=== PATIENT | female | born 1940 | race Caucasian/White ===

== ENCOUNTER → 2016-09-10 | Outpatient (CLI) | payer OTHER ==
[~2016-09-10] MED LIST: ASPIR 8181 M1 PO; ATIVAN0.5 MG PO; ATORVASTATIN CA80 MG PO; COREG12.5 MG PO; FLONASE 0.05%50 MCG NASAL; IBUPROFEN 600600 M1 PO; LOSARTAN POTAS100 MG PO; METFORMIN HCL500 MG PO; MOBIC7.5 MG PO; NITROGLYCERIN0.4 MG SUBLING; NORCO 5-325 TA1 EACH PO; PROAIR HFA8.5 GM; SERTRALINE HCL50 MG PO; TYLENOL325 MG PO; ZOLOFT25 MG PO
== END ==
LOC: CAT 02:14
DX: N28.89 Other specified disorders of kidney and ureter (principal); K76.89 Other specified diseases of liver; R10.32 Left lower quadrant pain

== ENCOUNTER → 2016-09-18 | Outpatient (CLI) | payer OTHER | LOC: CV → RAD 09:36 | DX: K44.9 Diaphragmatic hernia without obstruction or gangrene (principal); R10.9 Unspecified abdominal pain; E11.9 Type 2 diabetes mellitus without complications ==

== ENCOUNTER 2016-11-27 07:57 | Emergency (ER) | payer OTHER ==
[~2016-11-27] VITALS: Ht 160 cm; Wt 56.7 kg
--- NOTE | ~2016-11-27 | EKG ---
[place] [address] [facility] [email or web address] [address] ELECTROCARDIOGRAM REPORT Name: TREVON PANDYA [facility] [id number] Admission: 11/27/16 Attend Phys: Discharge: 11/27/16 Date of : 40 Report #: [id number] THIS REPORT FOR: //name// [facility] ED Test Date: 2016-11-27 Test Time: 09:10:27 Pat Name: TREVON PANDYA Department: Room: Gender: F Plant Maintenance Mechanic: Trevor CARDOSO : 1940 Requested By: Stiven Rae Order Number: [id number] MD: Cheng Martin Measurements Intervals [place] Rate: 49 P: 37 DC: 153 QRS: -12 QRSD: 127 T: -47 QT: 463 QTc: 418 Interpretive Statements Sinus bradycardia Inferior myocardial infarction, age indeterminate Nonspecific intraventricular conduction delay Compared to ECG 08/03/2016 04:38:11 no significant change was found Electronically Signed On 11-29-2016 15:35:19 CDT by Cheng Martin [email or web address] <ELECTRONICALLY SIGNED> By: Cheng Martin MD, [facility] 11/29/16 1535 9 9 Cheng Martin MD, [facility] /EPI
[2016-11-27] MEDS ORDERED: IBUPROFEN 600600 M1 PO (09:23)
[2016-11-27 09:37] VITALS: BP 147/57
== END 2016-11-27 09:39 | disposition home or self-care (01) ==
LOC: ER 07:57
DX: S63.502A Unspecified sprain of left wrist, initial encounter (principal); I25.2 Old myocardial infarction; E11.9 Type 2 diabetes mellitus without complications; F10.99 Alcohol use, unspecified with unspecified alcohol-induced disorder; Z90.710 Acquired absence of both cervix and uterus; Z90.89 Acquired absence of other organs; Z88.1 Allergy status to other antibiotic agents; Z88.0 Allergy status to penicillin; Z88.2 Allergy status to sulfonamides; Z87.891 Personal history of nicotine dependence; X50.0XXA Overexertion from strenuous movement or load, initial encounter; Y93.89 Activity, other specified; Y92.89 Other specified places as the place of occurrence of the external cause; Y99.8 Other external cause status

== ENCOUNTER → 2016-12-10 | Outpatient (CLI) | payer OTHER ==
[~2016-12-10] MED LIST changes: +ARICEPT PO; +ATORVASTATIN CA40 MG PO; +BUSPIRONE HCL5 MG PO; +COREG3.125 MG PO; +COZAAR PO; +MELATONIN5 M1 PO; +NORVASC5 MG PO; +ZOLOFT PO
== END ==
LOC: NUC 09:49
DX: M81.0 Age-related osteoporosis without current pathological fracture (principal); Z78.0 Asymptomatic menopausal state

== ENCOUNTER → 2016-12-16 | Outpatient (CLI) | payer OTHER ==
[~2016-12-16] VITALS: Ht 160 cm; Wt 56.7 kg
--- NOTE | ~2016-12-16 | EKG ---
[place] [address] [facility] [place] [address] ELECTROCARDIOGRAM REPORT Name: TREVON PANDYA Room #: REG CLReuben Maria#: [id number] Admission: 12/16/16 Attend Phys: Carlitos Davis Discharge: Date of : 40 Report #: [id number] THIS REPORT FOR: //name// [facility] Test Date: 2016-12-16 Test Time: 08:46:50 Pat Name: TREVON PANDYA Department: Room: Gender: F Culinary Assistant: RANJAN : 1940 Requested By: Harrison Eid Order Number: [id number] MD: Cheng Martin Measurements Intervals [place] Rate: 54 P: 35 DC: 148 QRS: -20 QRSD: 126 T: -58 QT: 473 QTc: 449 Interpretive Statements Sinus bradycardia IVCD, consider atypical LBBB Compared to ECG 11/27/2016 09:10:27 No significant change was found Electronically Signed On 12-17-2016 8:17:30 CDT by Cheng Martin [email or web address] <ELECTRONICALLY SIGNED> By: Cheng Martin MD, [facility] 12/17/1617 5 5 Cheng Martin MD, [facility] /EPI
== END | disposition home or self-care (01) ==
LOC: GI 08:15
DX: R19.4 Change in bowel habit (principal); I10 Essential (primary) hypertension; I25.2 Old myocardial infarction; E11.9 Type 2 diabetes mellitus without complications; F32.89 Other specified depressive episodes; Z88.0 Allergy status to penicillin; Z88.2 Allergy status to sulfonamides; Z88.8 Allergy status to other drugs, medicaments and biological substances; Z87.891 Personal history of nicotine dependence; Z90.710 Acquired absence of both cervix and uterus; Z98.890 Other specified postprocedural states; Z79.899 Other long term (current) drug therapy
CPT/HCPCS: 62110; 62900

== ENCOUNTER 2017-02-19 12:35 | Emergency (ER) | payer OTHER ==
[~2017-02-19] VITALS: Ht 157.5 cm; Wt 59.0 kg
[2017-02-23] MEDS ORDERED: IMDUR 30 MG TAB30 M1 PO (07:52)
[2017-02-23] MEDS ORDERED: SERTRALINE HCL50 MG PO (07:53)
[2017-02-23] MEDS ORDERED: ASPIR 8181 MG PO (07:54)
== END 2017-02-19 15:30 | disposition home or self-care (01) ==
LOC: ER 12:35
DX: S30.0XXA Contusion of lower back and pelvis, initial encounter (principal); I25.2 Old myocardial infarction; I10 Essential (primary) hypertension; F32.9 Major depressive disorder, single episode, unspecified; E78.5 Hyperlipidemia, unspecified; E11.9 Type 2 diabetes mellitus without complications; Z90.710 Acquired absence of both cervix and uterus; F10.99 Alcohol use, unspecified with unspecified alcohol-induced disorder; Z87.891 Personal history of nicotine dependence; Z88.0 Allergy status to penicillin; Z88.1 Allergy status to other antibiotic agents; Z88.2 Allergy status to sulfonamides; W01.0XXA Fall on same level from slipping, tripping and stumbling without subsequent striking against object, initial encounter; Y93.89 Activity, other specified; Y92.89 Other specified places as the place of occurrence of the external cause; Y99.8 Other external cause status

== ENCOUNTER → 2017-02-23 | Outpatient (CLI) | payer OTHER ==
[~2017-02-23] VITALS: Ht 167.6 cm; Wt 56.7 kg
[~2017-02-23] MED LIST changes: +ASPIR 8181 MG PO; +IMDUR 30 MG TAB30 M1 PO
--- NOTE | ~2017-02-23 | EKG ---
[address] [email or web address] [address] ELECTROCARDIOGRAM REPORT Name: RUY PANDYAITH Room #: REG CLI [facility] [id number] Admission: 02/23/17 Attend Phys: Ziggy Barney MD Discharge: Date of : 40 Report #: [id number] THIS REPORT FOR: //name// [facility] Test Date: 2017-02-23 Test Time: 07:25:50 Pat Name: TREVON PANDYA Department: Room: Gender: F Dry Cleaner Hand: Ruth BRINK : 1940 Requested By: Ziggy Barney Order Number: [id number] MD: Cheng Martin Measurements Intervals [place] Rate: 46 P: 41 MI: 157 QRS: -1 QRSD: 128 T: -35 QT: 495 QTc: 433 Interpretive Statements Sinus bradycardia Inferior infarct, age indeterminate Compared to ECG 12/16/2016 08:46:50 Myocardial infarct finding now present no significant change was found Electronically Signed On 02-23-2017 8:32:55 CDT by Cheng Martin [email or web address] <ELECTRONICALLY SIGNED> By: Cheng Martin MD, [facility] 02/23/1732 4 4 Cheng Martin MD, [facility] /EPI
--- NOTE | ~2017-02-23 | CATHLAB ---
[facility] [address] [place] [address] INVASIVE PROCEDURE REPORT Name: TREVON PANDYA Room #: REG SHANTE MenjivarIsauraSakinaIsaura#: [id number] Admission: 02/23/17 Attend Phys: Ziggy Barney MD Discharge: Date of : 40 Date of Service: 02/23/17 1141 Report #: [id number] THIS REPORT FOR: //name// APPROVED REPORT Patient Details Patient Status: Out-Patient Room #: The patient is a 76 year-old female Event Personnel Ziggy Barney Supervisor [employer], Jennifer Sharma Monitor, Tab Floyd RN, Yi Cruz RN RN, Lizandro Kelsey, Christina Sanford Monitor Procedures Performed Art Access - R femoral artery* Left Heart Cath w/or w/o Coronaries [id number] [facility] Hemostasis w/ Mynx Indication Chest pain Risk Factors Hypercholesterolemia, Coronary Artery DiseaseHypertension Previous Procedures/Diagnoses Previous NC Procedure Narrative The patient was brought electively to the Cardiac Catheterization Laboratory and was prepped and draped in a sterile manner. The Right Groin^ was infiltrated with 1% Lidocaine subcutaneous anesthesia. A PINNACLE 5FR Sheath #[id number] sheath was inserted into the RFA^. Coronary angiography was performed using coronary diagnostic catheters. The right coronary system was accessed and visualized with a JR 4 catheter. The left coronary system was accessed and visualized with a JL 4 catheter. The left ventricle was accessed and visualized with a Pigtail catheter. Left ventricular/Aortic Valve gradient assessed via catheter pullback. Left ventriculogram was performed in 30 degree projection. Pre-demployment femoral angiogram was performed RFA. Closure device was deployed with a 5 Fr Mynx. The patient tolerated the procedure well and there were no complications associated with the procedure. There was no hematoma. Intraoperative Conscious Sedation Sedation start time: 09:45 Case end Time: [facility] [address] [place] [address] INVASIVE PROCEDURE REPORT Name: TREVON PANDYA Room #: REG Candace#: [id number] Admission: 02/23/17 Attend Phys: Ziggy Barney MD Discharge: Date of : 40 Date of Service: 02/23/17 1141 Report #: [id number] 10:11 Fentanyl 25.0 mcg Versed 1.0 mg Fluoro Time: 2.35 minutes Dose: DAP 2818.00 cGycm2 348 mGy Contrast Type and Amount: Omnipaque 150 ml Coronary Angiography The patient's coronary anatomy is right dominant. Diagnostic Cath Left Main Large-caliber vessel with a mild to moderate stenosis at the distal segment, 30-40%. There is calcification within the distal region and proximal LAD and proximal left circumflex arteries. LAD Moderate size caliber vessel, traveling down the anterior wall and wrapping around the apex. Mild disease is noted at the ostium, 20%. Diagonal 1 No flow-limiting lesions. Circumflex Moderate to large size caliber vessel, with a moderate ostial stenosis, approximately 50%. Supplies one moderate size OM vessel. OM1 Patent with no flow-limiting lesions. Right Coronary Severe stenosis in the proximal segment, with an aneurysmal component(remote history of inferior wall NC). following the R PDA Filled via antegrade flow from the [place] RCA and from collateral flow from the left circumflex artery. RPLV Filled via collateral blood flow from the left circumflex artery, the collateral vessel is actually a moderate size caliber. Left Ventriculography The left ventricle is mildly dilated in size with decreased contractility. The left ventricular ejection fraction is estimated to be 40-45%. Left ventricular wall motion abnormalities are present. Mild hypokinesis of the inferior wall. Hemodynamics The aortic pressure is 141/61 mmHg with a mean of 90 mmHg. The left ventricular pressure is 125/14 mmHg with a mean of mmHg. The left ventricular end diastolic pressure is 30 mmHg. Conclusion 1. Mild to moderate stenosis in the distal left main and ostial left circumflex arteries. Recommend medical therapy. [facility] [address] [place] [address] INVASIVE PROCEDURE REPORT Name: TREVON PANDYA Room #: REG SHANTE Maria#: [id number] Admission: 02/23/17 Attend Phys: Ziggy Barney MD Discharge: Date of : 40 Date of Service: 02/23/17 1141 Report #: [id number] 2. Severe stenosis in the proximal RCA, remote history of inferior wall NC. The distal branches are filled via collateral circulation. Continue with medical therapy. 3. Mild to moderate segmental LV dysfunction. Recommendations Medical Therapy <ELECTRONICALLY SIGNED> By: Ziggy Barney MD 02/23/17 1141 1141 1141 Ziggy Barney MD /INF
[2017-02-23 07:34] LABS: HEMATOCRIT 38.9 % (37.0-47.0); HEMOGLOBIN 13.1 gm/dL (12.0-15.0); MCH 29.6 pg (26.0-34.0); MCHC 33.8 g/dL (28.0-37.0); MCV 87.5 fL (80.0-100.0); RBC 4.45 mil/uL (4.20-5.00); RDW 13.7 % (10.5-14.5); WBC 8.4 thou/uL (4.0-11.0)
[2017-02-23 07:45] VITALS: BP 152/59
[2017-02-23 07:45] LABS: CALCIUM 9.6 mg/dL (8.5-10.1); CREATININE 0.7 mg/dL (0.6-1.0)
== END | disposition home or self-care (01) ==
LOC: CATH 06:28
PROVIDERS: Internal Medicine Cardiovascular Disease
DX: I25.10 Atherosclerotic heart disease of native coronary artery without angina pectoris (principal); I11.0 Hypertensive heart disease with heart failure; I50.1 Left ventricular failure, unspecified; I25.2 Old myocardial infarction; E78.00 Pure hypercholesterolemia, unspecified; E11.9 Type 2 diabetes mellitus without complications; F32.89 Other specified depressive episodes; F41.8 Other specified anxiety disorders; Z90.710 Acquired absence of both cervix and uterus; Z98.890 Other specified postprocedural states; Z87.891 Personal history of nicotine dependence; Z82.49 Family history of ischemic heart disease and other diseases of the circulatory system; Z88.0 Allergy status to penicillin; Z88.2 Allergy status to sulfonamides; Z88.1 Allergy status to other antibiotic agents; Z79.899 Other long term (current) drug therapy; Z79.82 Long term (current) use of aspirin

== ENCOUNTER → 2017-06-18 | Outpatient (CLI) | payer OTHER ==
[~2017-06-18] MED LIST changes: +ARICEPT 5 MG TAB5 MG PO; +COLACE 100 MG100 MG PO; +COLACE100 MG PO; +COZAAR 50 MG TA50 M1 PO; +COZAAR 50 MG TA50 M2 PO; +RANEXA500 MG PO; +ZOLOFT100 MG PO
== END ==
LOC: RAD 11:24
DX: J40 Bronchitis, not specified as acute or chronic (principal); I51.7 Cardiomegaly

== ENCOUNTER 2017-08-13 07:36 | Inpatient (IN) | payer OTHER ==
[2017-08-13] VITALS (7 sets, daily range): BP systolic 107–137; BP diastolic 50–64
[~2017-08-13] VITALS: Ht 157.5 cm; Wt 63.0 kg
--- NOTE | ~2017-08-13 | H ---
[facility] [place] [address] HISTORY AND PHYSICAL Name: TREVON PANDYA Room #: 438-P [facility] IN M.R.#: [id number] Admission: 08/13/17 Attend Phys: Otto Esparza Discharge: 08/15/17 Date of : 40 Report #: [id number] THIS REPORT FOR: //name// CC: Alex Kenney DATE OF SERVICE: 08/13/2017 CHIEF COMPLAINT: Chest pain, weakness and dizziness. HISTORY OF PRESENT ILLNESS: The patient is a 76-year-old female, came to the Emergency Room with a couple of days of varied symptoms, mainly centered on a feeling of weakness, lightheadedness and some left-sided rib or flank discomfort. She has had for a couple of days. She just has not felt right and went to bed last night, and she said she was "out of it." She woke up and was not sort of aware to the surroundings, and it took a couple of minutes to kind of get her bearing. Her daughter called as normal this morning and reported that she was feeling very weak that she could not get out of bed. In recent days, she has felt lightheaded, and her daughters noted that she has been stumbling at times, but has not had any falls. The patient is describing some discomfort vaguely over the last several weeks involving the left ribs or left flank area; however, this is not associated with activity, and before yesterday, she was attending exercise classes including walking on a treadmill at the local [facility] without precipitating any pain. She said she actually felt better when she went to exercise. She has had no shortness of breath, productive cough, fever or chills. She does have a longstanding history of heart disease and had apparently cardiac arrest some 28 years ago and has had coronary artery disease, has been treated medically. PAST MEDICAL HISTORY: Coronary artery disease, hypertension. There is a report of diabetes type 2, depression, dyslipidemia. PAST SURGICAL HISTORY: Cholecystectomy and hysterectomy. FAMILY HISTORY: Noncontributory. SOCIAL HISTORY: No chronic alcohol or tobacco use. ALLERGIES: LEVAQUIN, PENICILLIN, SULFA. MEDICATIONS: Lipitor 40 mg, BuSpar as needed, Cozaar 100 mg, Aricept 5 mg, Coreg 3.125 mg twice a day, melatonin, Norvasc 5 mg, Ranexa 500 mg b.i.d., Zoloft 100 mg a day, aspirin 81 mg a day, Imdur 30 mg a day. REVIEW OF SYSTEMS: She denies headache, chest pain, shortness of breath, abdominal pain, nausea, vomiting, diarrhea, constipation, dysuria, syncope. [facility] [address] [place] [address] HISTORY AND PHYSICAL Name: TREVON PANDYA Room #: 438-P [facility] IN M.R.#: [id number] Admission: 08/13/17 Attend Phys: Otto Esparza Discharge: 08/15/17 Date of : 40 Report #: [id number] OBJECTIVE: VITAL SIGNS: Temperature 36.6, pulse 55, respirations 13, blood pressure 129/58, ranging to 107/53. O2 sat 99% on room air. GENERAL: She is awake and alert, in no distress. HEAD AND NECK: Unremarkable. LUNGS: Clear. HEART: Bradycardic, regular rhythm, no murmur. ABDOMEN: Soft. Normoactive bowel sounds. EXTREMITIES: No cyanosis, clubbing or edema. NEUROLOGIC: Motor strength 5/5 throughout. She is alert and oriented. LABORATORY DATA: Reviewed. ASSESSMENT: 1. Chest pain. 2. Coronary artery disease. 3. Possible orthostatic hypotension. 4. Bradycardia. PLAN: I will reduce her antihypertensive regimen at this point, leave off the Norvasc and Coreg at this time. Other cardiac medications to continue. Orthostatic blood pressures have been ordered. I have asked Cardiology to see her as well. <ELECTRONICALLY SIGNED> By: Lizandro Lyn MD 03/08/18 1514 0931 1049 Lizandro Lyn MD /nt
--- NOTE | ~2017-08-13 | 2DMMODE ---
[facility] [address] [place] [address] 2 D/M-MODE ECHOCARDIOGRAM Name: TREVON PANDYA Room #: 438-P ADM IN M.R.#: [id number] Admission: 08/13/17 Attend Phys: Alex Edwards Discharge: Date of : 40 Date of Service: 08/13/17 1201 Report #: [id number] THIS REPORT FOR: //name// APPROVED REPORT Study performed: 08/13/2017 10:24:30 EXAM: Comprehensive 2D, Doppler, and color-flow Echocardiogram Patient Location: Bedside Room #: 438 Status: routine BSA: 1.64 HR: 50 bpm BP: 133/58 mmHg Rhythm: NSR Other Information Study Quality: Good Indications CAD Hx: DM, HTN 2D Dimensions RVDd: 32.20 mm LVEF(%): 42.26 (>50%) IVSd: 8.09 (7-11mm) LVOT Diam: 18.77 (18-24mm) LVDd: 60.64 mm PWd: 9.18 (7-11mm) Ascending Ao: 41.00 (22-36mm) LVDs: 47.80 (25-40mm) Aortic Root: 32.17 mm Bolden's LVEF: 42.26 % Volumes Left Atrial Volume (Systole) Single Plane 4CH: 79.78 mL Single Plane 2CH: 57.64 mL LA ESV Index: 45.00 mL/m2 Aortic Valve AoV Peak Darion.: 1.65 m/s AO Peak Gr.: 10.93 mmHg LVOT Max P.97 mmHg LVOT Max V: 1.12 m/s PERLA Vmax: 1.87 cm2 Mitral Valve E/A Ratio: 0.5 [facility] [place] [place] [address] 2 D/M-MODE ECHOCARDIOGRAM Name: TREVON PANDYA Room #: 438-P [facility] IN M.R.#: [id number] Admission: 08/13/17 Attend Phys: Alex Edwards Discharge: Date of : 40 Date of Service: 08/13/17 1201 Report #: [id number] MV Decel. Time: 301.40 ms MV E Max Darion.: 0.50 m/s MV A Darion.: 1.09 m/s MV PHT: 87.41 ms IVRT: 156.86 ms Pulmonary Valve PV Peak Darion.: 1.14 m/s PV Peak Gr.: 5.19 mmHg Pulmonary Vein P Vein S: 0.57 m/s P Vein A: 0.31 m/s P Vein D: 0.33 m/s P Vein A Dur.: 138.4 msec P Vein S/D Ratio: 1.73 Tricuspid Valve TR Peak Darion.: 2.42 m/s RAP Estimate: 5.00 mmHg TR Peak Gr.: 23.38 mmHg PA Pressure: 28.00 mmHg Left Ventricle Left ventricle is mildly dilated. There is hypokinesis in the inferior wall. There is normal left ventricular wall thickness. Left ventricular systolic function is mild to moderately decreased. LVEF is 40-45%. Grade I - abnormal relaxation pattern. Right Ventricle The right ventricle is normal size. The right ventricular systolic function is normal. Atria Left atrium is moderately dilated. The right atrium size is normal. Aortic Valve Aortic valve is trileaflet. Aortic valve leaflets are mildly thickened. Mild to moderate aortic regurgitation. There is no aortic valvular stenosis. Mitral Valve The mitral valve is normal in structure. Mild mitral regurgitation. No evidence of mitral valve stenosis. Tricuspid Valve The tricuspid valve is normal in structure. Trace tricuspid regurgitation. Estimated PAP 28 mmHg. [facility] [address] [place] [address] 2 D/M-MODE ECHOCARDIOGRAM Name: TREVON PANDYA Room #: 438-P [facility] IN .R.#: [id number] Admission: 08/13/17 Attend Phys: Alex Edwards Discharge: Date of : 40 Date of Service: 08/13/17 1201 Report #: [id number] Pulmonic Valve The pulmonary valve is normal in structure. Trace pulmonic regurgitation. Great Vessels The aortic root is normal in size. The ascending aorta is mildly dilated. IVC is normal in size and collapses >50% with inspiration. <Conclusion> Left ventricle is mildly dilated. Left ventricular systolic function is mild to moderately decreased. Grade I - abnormal relaxation pattern. The right ventricle is normal size. Left atrium is moderately dilated. Mild to moderate aortic regurgitation. Mild mitral regurgitation. Trace tricuspid regurgitation. Estimated PAP 28 mmHg. <ELECTRONICALLY SIGNED> By: Ziggy Barney MD 08/13/17 120 00 00 Ziggy Barney MD /INF
--- NOTE | ~2017-08-13 | H ---
[facility] [place] [address] HISTORY AND PHYSICAL Name: TREVON PANDYA Room #: 438-P [facility] IN M.R.#: [id number] Admission: 08/13/17 Attend Phys: Otto Esparza Discharge: 08/15/17 Date of : 40 Report #: [id number] THIS REPORT FOR: //name// CC: Alex Kenney CHIEF COMPLAINT: Weakness. HISTORY OF PRESENT ILLNESS: The patient is a 76-year-old female came to the Emergency Room with some symptoms of chest pain and weakness. She has felt some dizziness and unsteadiness at times. She had difficulty getting around and has had some non-injury falls. Denies any shortness of breath or cough. PAST MEDICAL HISTORY: Hypertension and myocardial infarction 20 years ago. She had a cardiac event 27 years ago. PAST SURGICAL HISTORY: Cholecystectomy, tonsillectomy and hysterectomy. FAMILY HISTORY: Noncontributory. SOCIAL HISTORY: No chronic alcohol or tobacco use. ALLERGIES: LEVAQUIN, PENICILLIN AND SULFA. MEDICATIONS: BuSpar, Cozaar, Aricept, melatonin, Lipitor, Norvasc, Coreg, Ranexa, Zoloft, aspirin and isosorbide. REVIEW OF SYSTEMS: Denies headache, chest pain, shortness of breath, abdominal pain, nausea, vomiting, diarrhea, constipation, dysuria or syncope. PHYSICAL EXAMINATION: VITAL SIGNS: O2 sat 97%, blood pressure 129/58, temperature 36.6, pulse 55 and respirations 11. GENERAL: Awake and alert, in no distress. LUNGS: Clear. HEART: Bright. ABDOMEN: Normoactive bowel sounds. EXTREMITIES: No edema. NEUROLOGIC: Motor strength 4/5 throughout. ASSESSMENT: 1. Bradycardia. 2. Hypertension, possible orthostasis. 3. Coronary artery disease. PLAN: She will be admitted to telemetry. I have asked Dr. Barney to see her in [facility] [address] [place] [address] HISTORY AND PHYSICAL Name: TREVON PANDYA Room #: 438-P DIS IN .R.#: [id number] Admission: 08/13/17 Attend Phys: Otto Esparza Discharge: 08/15/17 Date of : 40 Report #: [id number] consultation. She may have some orthostatic symptoms, the way she described. I have held off several of her antihypertensive medicines and carvedilol for now. <ELECTRONICALLY SIGNED> By: Lizandro Lyn MD 08/18/17 1208 1030 1117 Lizandro Lyn MD /nt
--- NOTE | ~2017-08-13 | EKG ---
[facility] [employer] [place] [address] ELECTROCARDIOGRAM REPORT Name: TREVON PANDYA Room #: REG EDUARDO Maria#: [id number] Admission: 08/13/17 Attend Phys: Discharge: Date of : 40 Report #: [id number] THIS REPORT FOR: //name// [facility] ED Test Date: 2017-08-13 Test Time: 07:53:15 Pat Name: TREVON PANDYA Department: Room: Gender: F Speech Therapy Assistant: jeanine : 1940 Requested By: Raimundo Mejia Order Number: [id number] MD: Cheng Martin Measurements Intervals [place] Rate: 51 P: 34 PA: 152 QRS: -9 QRSD: 122 T: -37 QT: 478 QTc: 441 Interpretive Statements Sinus bradycardia Probable left atrial enlargement Poor R wave progression Nonspecific intraventricular conduction delay Inferior infarct, age indeterminate Compared to ECG 02/23/2017 07:25:50 No significant change was found Electronically Signed On 08-13-2017 8:41:01 [employer]ACHUTE MANUFACTURING SUPERVISOR by Cheng Martin [email or web address] <ELECTRONICALLY SIGNED> By: Cheng Martin MD, [facility] 08/13/17 0841 0753 0753 Cheng Martin MD, [facility] /EPI
[~2017-08-13 07:36] MED LIST changes: -ARICEPT 5 MG TAB5 MG PO; -COLACE 100 MG100 MG PO; -COZAAR 50 MG TA50 M1 PO; -COZAAR 50 MG TA50 M2 PO; -RANEXA500 MG PO; -ZOLOFT100 MG PO
[2017-08-13 08:09] LABS: HEMATOCRIT 39.8 % (37.0-47.0); HEMOGLOBIN 13.2 gm/dL (12.0-15.0); MCHC 33.3 g/dL (28.0-37.0); MCV 87.3 fL (80.0-100.0); RBC 4.56 mil/uL (4.20-5.00); WBC 6.8 thou/uL (4.0-11.0)
[2017-08-13] MEDS ORDERED: ATORVASTATIN CA40 MG PO (08:10)
[2017-08-13] MEDS ORDERED: COZAAR 50 MG TA50 M2 PO (08:11)
[2017-08-13] MEDS ORDERED: RANEXA500 MG PO (08:12)
[2017-08-13] MEDS ORDERED: ARICEPT 5 MG TAB5 MG PO (08:12)
[2017-08-13 08:20] LABS: ANION GAP 6 mmol/L (7-16); BUN 16 mg/dL (7-18); CALCIUM 9.4 mg/dL (8.5-10.1); CHLORIDE 107 mmol/L (98-107); CO2 27 mmol/L (21-32); CREATININE 0.8 mg/dL (0.6-1.0); GLUCOSE 115 mg/dL (74-106); POTASSIUM 3.8 mmol/L (3.5-5.1); SODIUM 140 mmol/L (136-145)
[2017-08-13 08:29] LABS: TROPONIN-I < 0.04 ng/mL (<0.06)
[2017-08-14 04:16] VITALS: BP 130/50
[2017-08-14 07:43] VITALS: BP 126/53
[2017-08-14 15:50] VITALS: BP 111/62
[2017-08-14 15:53] VITALS: BP 117/59
[2017-08-14 15:55] VITALS: BP 118/66
[2017-08-14 19:36] VITALS: BP 104/46
[2017-08-15 05:51] VITALS: BP 136/68
[2017-08-15 07:20] VITALS: BP 143/68
[2017-08-15] MEDS ORDERED: IMDUR 30 MG TAB30 M1 PO (09:13)
[2017-08-15] MEDS ORDERED: RANEXA500 MG PO (09:13)
[2017-08-15] MEDS ORDERED: ATORVASTATIN CA40 MG PO (09:13)
[2017-08-15] MEDS ORDERED: COZAAR 50 MG TA50 M1 PO (09:14)
[2017-08-15] MEDS ORDERED: COLACE 100 MG100 MG PO (09:15)
[2017-08-15] MEDS ORDERED: ZOLOFT100 MG PO (09:15)
[2017-08-15] MEDS ORDERED: ASPIR 8181 MG PO (09:15)
[2017-08-15 10:18] VITALS: BP 143/68
== END 2017-08-15 11:40 | disposition home or self-care (01) | DRG 313 ==
LOC: ER 07:36 → EROBS 08:51 → 4S 08:51 → EROBS 09:54 → 4S 10:10
PROVIDERS: Emergency Medicine
DX: R07.9 Chest pain, unspecified (principal); E11.9 Type 2 diabetes mellitus without complications; F32.9 Major depressive disorder, single episode, unspecified; I10 Essential (primary) hypertension; I25.10 Atherosclerotic heart disease of native coronary artery without angina pectoris; J44.9 Chronic obstructive pulmonary disease, unspecified; G47.33 Obstructive sleep apnea (adult) (pediatric); F03.90 Unspecified dementia, unspecified severity, without behavioral disturbance, psychotic disturbance, mood disturbance, and anxiety; F41.9 Anxiety disorder, unspecified; E78.5 Hyperlipidemia, unspecified; I25.5 Ischemic cardiomyopathy; E78.00 Pure hypercholesterolemia, unspecified; K59.00 Constipation, unspecified; Z90.710 Acquired absence of both cervix and uterus; I25.2 Old myocardial infarction; Z88.0 Allergy status to penicillin; Z88.2 Allergy status to sulfonamides; Z88.1 Allergy status to other antibiotic agents; Z87.891 Personal history of nicotine dependence; Z90.49 Acquired absence of other specified parts of digestive tract
CPT/HCPCS: 10100

== ENCOUNTER → 2018-04-29 | Outpatient (CLI) | payer OTHER ==
[~2018-04-29] MED LIST changes: +ARICEPT 5 MG TAB5 MG PO; +COLACE 100 MG100 MG PO; +COZAAR 50 MG TA50 M1 PO; +COZAAR 50 MG TA50 M2 PO; +RANEXA500 MG PO; +ZOLOFT100 MG PO
== END ==
LOC: NUC 08:59
DX: K30 Functional dyspepsia (principal)

== ENCOUNTER 2018-09-01 13:44 | Emergency (ER) | payer OTHER ==
[~2018-09-01] VITALS: Ht 162.6 cm; Wt 68.0 kg
[2018-09-01 14:36] LABS: ABSOLUTE NEUTROPHILS 3.7 thou/uL (1.4-8.2); EOSINOPHILS 3.1 % (0.0-3.0); HEMATOCRIT 41.4 % (37.0-47.0); HEMOGLOBIN 13.8 gm/dL (12.0-15.0); LYMPHOCYTES 31.5 % (24.0-44.0); MCH 29.1 pg (26.0-34.0); MCHC 33.4 g/dL (28.0-37.0); MCV 87.2 fL (80.0-100.0); MONOCYTES 9.3 % (1.0-8.0); PLATELET COUNT 212 thou/uL (150-400); POLYS 55.1 % (36.0-66.0); RBC 4.75 mil/uL (4.20-5.00); RDW 13.1 % (10.5-14.5); WBC 6.7 thou/uL (4.0-11.0)
[2018-09-01 14:40] LABS: ANION GAP 6 mmol/L (7-16); BUN 14 mg/dL (7-18); CALCIUM 9.6 mg/dL (8.5-10.1); CHLORIDE 104 mmol/L (98-107); CO2 29 mmol/L (21-32); CREATININE 0.9 mg/dL (0.6-1.0); GLUCOSE 143 mg/dL (74-106); SODIUM 139 mmol/L (136-145)
[2018-09-01 14:49] LABS: ALBUMIN 3.6 g/dL (3.4-5.0); SGOT 22 U/L (15-37); SGPT 22 U/L (30-65); TOTAL BILIRUBIN 0.4 mg/dL (<0.1-1.0); TOTAL PROTEIN 7.2 g/dL (6.4-8.2); TROPONIN-I <0.06 ng/mL (<0.06)
[2018-09-01 15:06] LABS: URINE BILIRUBIN NEGATIVE (Negative); URINE BLOOD NEGATIVE (Negative); URINE CLARITY CLEAR; URINE COLOR YELLOW; URINE GLUCOSE-RANDOM* NEGATIVE (Negative); URINE KETONES NEGATIVE (Negative); URINE NITRITE-REFLEX NEGATIVE (Negative); URINE PROTEIN (DIPSTICK) NEGATIVE (Negative); URINE UROBILINOGEN 0.2 E.U./dl (0.2-1.0)
[2018-09-01 15:07] LABS: URINE LEUKOCYTES-REFLEX 3+ (Negative)
[2018-09-01 15:14] LABS: AMP/METHAMP Negative (Negative); BARBITURATES Negative (Negative); BENZODIAZEPINES Negative (Negative); COCAINE Negative (Negative); METHADONE Negative (Negative); OPIATES Negative (Negative); PCP Negative (Negative)
[2018-09-01 15:17] LABS: CASTS None Seen /LPF (None Seen); CRYSTALS None Seen /LPF (None Seen); SQUAMOUS 4-10 Moderate /LPF (0-3)
[2018-09-01 15:19] LABS: URINE RBC None Seen /HPF (0-2); URINE WBC-REFLEX 6-15 Few /HPF (0-5)
[2018-09-01 15:31] VITALS: BP 163/52
--- NOTE | 2018-09-02 07:53 | EKG ---
[place] [address] [facility] [facility] [address] [email or web address] [address] ELECTROCARDIOGRAM REPORT Name: TREVON PANDYA Room #: DEP EDUARDO Maria#: [id number] ������������������ Admission: 09/01/18 ������������������ Attend Phys: Discharge: 09/01/18 ������������������ Date of : 40 Report #: [id number] ����������������������������������������������������������������� [id number] THIS REPORT FOR: //name// [facility] ED Test Date: 2018-09-01 Test Time: 14:31:37 Pat Name: TREVON PANDYA Department: Room: Gender: F Trench Digger Helper: WG : 1940 Requested By: Devante Cruz Order Number: [id number] MD: Cheng Martin Measurements Intervals [place] Rate: 53 P: 30 GA: 142 QRS: -22 QRSD: 123 T: -42 QT: 446 QTc: 419 Interpretive Statements Sinus bradycardia Left ventricular hypertrophy Inferior infarct, age indeterminate Anterior infarct, old Compared to ECG 08/13/2017 07:53:15 No significant change was found Electronically Signed On 09-02-2018 7:52:52 CDT by Cheng Martin [email or web address] ��������������������������������������������� <ELECTRONICALLY SIGNED> ���������������������������������������� By: Cheng Martin MD, [facility] ��������������������������������������������� 09/02/18 0752 1431 1431 Cheng Martin MD, [facility] /EPI
== END 2018-09-01 16:11 | disposition home or self-care (01) ==
LOC: ER 13:44
PROVIDERS: Emergency Medicine
DX: F03.90 Unspecified dementia, unspecified severity, without behavioral disturbance, psychotic disturbance, mood disturbance, and anxiety (principal); R26.89 Other abnormalities of gait and mobility; N39.0 Urinary tract infection, site not specified; I10 Essential (primary) hypertension; E11.9 Type 2 diabetes mellitus without complications; F32.9 Major depressive disorder, single episode, unspecified; E78.5 Hyperlipidemia, unspecified; J44.9 Chronic obstructive pulmonary disease, unspecified; G47.33 Obstructive sleep apnea (adult) (pediatric); F41.9 Anxiety disorder, unspecified; Z90.49 Acquired absence of other specified parts of digestive tract; Z90.710 Acquired absence of both cervix and uterus; Z87.891 Personal history of nicotine dependence; Z88.0 Allergy status to penicillin; Z88.1 Allergy status to other antibiotic agents; Z88.2 Allergy status to sulfonamides

== ENCOUNTER 2020-01-16 21:09 | Emergency (ER) | payer OTHER ==
[~2020-01-16] VITALS: Ht 157.5 cm; Wt 54.4 kg
[2020-01-16 21:15] VITALS: BP 157/98
[2020-01-16 23:53] LABS: URINE BILIRUBIN NEGATIVE (Negative); URINE BLOOD TRACE (Negative); URINE CLARITY CLEAR; URINE COLOR YELLOW; URINE GLUCOSE-RANDOM* NEGATIVE (Negative); URINE KETONES TRACE (Negative); URINE LEUKOCYTES-REFLEX 2+ (Negative); URINE NITRITE-REFLEX NEGATIVE (Negative); URINE PROTEIN (DIPSTICK) NEGATIVE (Negative); URINE SPECIFIC GRAVITY 1.025 (1.005-1.035)
[2020-01-17 00:29] LABS: BACTERIA-REFLEX 1-9 Few /HPF (None Seen); CASTS None Seen /LPF (None Seen); CRYSTALS None Seen /LPF (None Seen); MUCUS 0-3 Light strn/LPF (None Seen); SQUAMOUS 0-3 Few /LPF (0-3); URINE RBC 0-2 Rare /HPF (0-2); WBC CLUMPS Few (None Seen)
== END 2020-01-17 00:50 | disposition home or self-care (01) ==
LOC: ER 21:09
PROVIDERS: Emergency Medicine
DX: N81.2 Incomplete uterovaginal prolapse (principal); I25.2 Old myocardial infarction; E11.9 Type 2 diabetes mellitus without complications; I10 Essential (primary) hypertension; F32.9 Major depressive disorder, single episode, unspecified; E78.5 Hyperlipidemia, unspecified; J44.9 Chronic obstructive pulmonary disease, unspecified; F03.90 Unspecified dementia, unspecified severity, without behavioral disturbance, psychotic disturbance, mood disturbance, and anxiety; F41.9 Anxiety disorder, unspecified; I25.10 Atherosclerotic heart disease of native coronary artery without angina pectoris; Z90.711 Acquired absence of uterus with remaining cervical stump; Z90.89 Acquired absence of other organs; Z90.49 Acquired absence of other specified parts of digestive tract; Z98.51 Tubal ligation status; Z79.899 Other long term (current) drug therapy; Z79.82 Long term (current) use of aspirin; Z88.1 Allergy status to other antibiotic agents; Z88.0 Allergy status to penicillin; Z88.2 Allergy status to sulfonamides; Z87.891 Personal history of nicotine dependence

== ENCOUNTER 2021-01-31 14:42 | Emergency (ER) | payer OTHER ==
[~2021-01-31] VITALS: Ht 157.5 cm; Wt 68.0 kg
[2021-01-31 14:42] VITALS: BP 174/69
== END 2021-01-31 16:15 | disposition home or self-care (01) ==
LOC: ER 14:42
DX: S00.93XA Contusion of unspecified part of head, initial encounter (principal); E11.9 Type 2 diabetes mellitus without complications; I10 Essential (primary) hypertension; F32.9 Major depressive disorder, single episode, unspecified; E78.5 Hyperlipidemia, unspecified; J44.9 Chronic obstructive pulmonary disease, unspecified; F03.90 Unspecified dementia, unspecified severity, without behavioral disturbance, psychotic disturbance, mood disturbance, and anxiety; F41.9 Anxiety disorder, unspecified; Z79.82 Long term (current) use of aspirin; Z98.51 Tubal ligation status; Z90.710 Acquired absence of both cervix and uterus; Z90.49 Acquired absence of other specified parts of digestive tract; Z79.899 Other long term (current) drug therapy; Z87.891 Personal history of nicotine dependence; Z90.89 Acquired absence of other organs; Z88.0 Allergy status to penicillin; Z88.1 Allergy status to other antibiotic agents; W19.XXXA Unspecified fall, initial encounter; Y93.89 Activity, other specified; Y92.89 Other specified places as the place of occurrence of the external cause; Y99.8 Other external cause status